=== PATIENT | female | born 1985 | race Caucasian/White ===

== ENCOUNTER 2018-11-12 09:25 | Emergency (ER) | payer MEDICAID ==
[2018-11-12] MEDS ORDERED: NS 1,000 ML IV ONE ×2 (09:44→10:47)
[2018-11-12] MEDS ORDERED: ONDANSETRON 4 MG/2 ML VIAL IVP ONE (09:55)
--- NOTE | 2018-11-12 10:24 | EDPHY ---
H & P Stated Complaint: vomiting 24hours. abdominal cramping Time Seen by Provider: 11/12/18 09:44 HPI/ROS: This (1 TAb) patient presents with vomiting. She explains that while she had some 1st trimester nausea and vomiting/the morning sickness about 3 weeks 11 of she had had any over the past 2 weeks prior to now at 13 weeks gestation. She had an healthy IUP on ultrasound week 8. She explains that she developed some upper belly discomfort yesterday described as crampy in nature prior to the onset of her vomiting and vomited several times last night. She vomited this morning in addition other few times in arise with ongoing nausea. She reports that the upper belly discomfort the proceed to the vomiting has since resolved. Now she has only mild suprapubic discomfort described as achy in nature. She has no other associated symptoms. She came in by private vehicle for evaluation. ROS: Constitutional: No fevers. No chills. HEENT: No coryza or other URI symptoms. Pulmonary: No cough or dyspnea Cardiovascular: No lightheadedness GI: Normal bowel movements. No hematemesis. : No dysuria frequency or urgency. No vaginal discharge or vaginal bleeding 10 point review of symptoms is performed and otherwise negative with exception of pertinent positives and negatives listed in HPI and ROS Source: Patient Exam Limitations: No limitations - Personal History LMP (Females 10-55): - Medical/Surgical History Hx Asthma: No Hx Chronic Respiratory Disease: No Hx Diabetes: No Hx Cardiac Disease: No Hx Renal Disease: No Hx Cirrhosis: No Hx Alcoholism: No Hx HIV/AIDS: No Hx Splenectomy or Spleen Trauma: No Other PMH: 13 weeks - Social History Smoking Status: Never smoked Alcohol Use: None - Physical Exam Exam: General Appearance: Alert, no distress. Eyes: Pupils equal and round no pallor or injection. ENT, Mouth: Mucous membranes moist. Respiratory: There are no retractions, lungs are clear to auscultation. Cardiovascular: Regular rate and rhythm. Gastrointestinal: Normoactive, soft, minimal suprapubic tenderness with no guarding or rebound. Fundus consistent with 13 weeks gestation. Back: No CVA tenderness Neurological: GCS 15. Skin: Warm and dry, no rashes. Musculoskeletal: Neck is supple nontender. Extremities are symmetrical, full range of motion. Psychiatric: Mood and affect are normal DIFFERENTIAL DIAGNOSIS: After history and physical exam differential diagnosis was considered for vomiting associated with , food intolerance, gastroenteritis, hepatitis, UTI Constitutional: Initial Vital Signs Temperature (C) 36.5 C 11/12/18 09:39 Heart Rate 60 11/12/18 09:39 Respiratory Rate 18 11/12/18 09:39 Blood Pressure 125/84 H 11/12/18 09:39 O2 Sat (%) 99 11/12/18 09:39 O2 Delivery Mode Room Air Allergies/Adverse Reactions: No Known Allergies Allergy (Unverified 11/12/18 09:41) Home Medications: Medication Instructions Recorded Doxylamine Succinate/Vit B6 2 each PO DAILY #30 tablet. 11/12/18 [Endy Encinas 10-10 mg Tablet] 11/12/18 Promethazine HCl [Phenergan 50mg 50 mg AR Q6 PRN #3 suppr 11/12/18 supp (*)] Medical Decision Making ED Course/Re-evaluation: IV normal saline bolus x2 L Zofran 4 mg with resolution of nausea and vomiting. Tolerated p. O. Fluids thereafter Patient has slight suprapubic discomfort resolved without any other intervention. Review of POC labs revealed a normal CBC, basic metabolic panel, liver function tests, urinalysis. Discussion: Patient presents with vomiting in early start her 2nd trimester. Patient feels this is related to food ingestion. She does not have diarrhea. She has a benign belly exam benign labs. Will plan to send her home on deck leisure as with Phenergan suppositories back up. She will follow up with OBGYN for any ongoing symptoms. She understands need to return emergency department should she have any worsening of her symptoms despite treatment plan - Data Points Medications Given: Discontinued Medications Sodium Chloride (Ns) 1,000 mls @ 0 mls/hr IV EDNOW ONE; Wide Open PRN Reason: Protocol Stop: 11/12/18 09:45 Last Admin: 11/12/18 10:04 Dose: 1,000 mls Sodium Chloride (Ns) 1,000 mls @ 0 mls/hr IV ONCE ONE; Wide Open PRN Reason: Protocol Stop: 11/12/18 10:48 Last Admin: 11/12/18 10:54 Dose: 1,000 mls Ondansetron HCl (Zofran) 4 mg IVP EDNOW ONE Stop: 11/12/18 09:56 Last Admin: 11/12/18 10:04 Dose: 4 mg Point of Care Test Results: CBC CBC Collection Date 11/12/18 CBC Collection Time 10:00 WBC 13.53 RBC 4.27 HGB 12.2 HCT 35.1 PLT 276 Neut # 11.73 Neut 86.6 LYMPH # 1.28 LYMPH 9.5 MCV 82.2 Chemistry 11/12/18 11/12/18 10:24 10:07 POC Sodium 137 mEq/L mEq/L (135-145) POC Potassium 3.7 mEq/L mEq/L (3.3-5.0) POC Chloride 106.0 mEq/L mEq/L (97-110) POC Total CO2 26 mEq/L mEq/L (22-31) POC BUN 5 mg/dL L mg/dL (7-23) POC Creatinine 0.6 mg/dL mg/dL (0.6-1.0) POC Glucose 105 mg/dL H mg/dL (70-100) POC Calcium 9.8 mg/dL mg/dL (8.5-10.4) POC Total Bilirubin 1.0 mg/dL mg/dL (0.1-1.4) POC GGT 6 IU/L IU/L (5-65) POC AST 27 IU/L IU/L (14-46) POC ALT 15 IU/L IU/L (9-52) POC Alk Phosphatase 61 IU/L IU/L (38-126) POC Total Protein 7.3 g/dL g/dL (6.3-8.2) POC Albumin 3.9 g/dL g/dL (3.5-5.0) POC Amylase 77 IU/L IU/L (30-110) Liver Function Tests LFT Collection Date 11/12/18 LFT Collection Time 10:00 Urine Dip Collection Date 11/12/18 Collection Time 10:45 Specific [place] (1.002-1.030) 1.015 PH (5.0-7.5) 7.5 Leukocytes (Negative) Negative Nitrites (Negative) Negative Protein (Negative) Negative Glucose (Negative) Negative Ketones (Negative) 3+ Urobilnogen (0.2-1.0 EU) 0.2 Bilirubin (Negative) Negative Blood (Negative) Negative Departure - Departure Disposition: Home, Routine, Self-Care Clinical Impression: Vomiting, Dehydration Clinical Impression: (Ruled Out): Vomiting affecting Condition: Fair Instructions: Nausea and Vomiting in (ED) Additional Instructions: Diagnosis: Vomiting in 2. Dehydration All of your labs today are normal for . Plan: Light diet until he feel improved Drink plenty fluids Dyclegis as prescribed or vitamin B6 and Doxylamine separately Donna supplement in addition for nausea Phenergan suppositories if needed for vomiting Follow up with OBGYN Return emergency department for any significant worsening despite treatment plan Referrals: NONE *PRIMARY CARE P,. [Primary Care Provider] - As per Instructions Winnie Crawley MD [Medical Doctor] - As per Instructions Prescriptions: Doxylamine Succinate/Vit B6 [Endy Encinas 10-10 mg Tablet] 2 each PO DAILY #30 tablet. Promethazine HCl [Phenergan 50mg supp (*)] 50 mg AR Q6 PRN #3 suppr PRN Reason: vomiting
[2018-11-12 11:55] VITALS: BP 123/80
== END 2018-11-12 12:09 | disposition home or self-care (01) ==
LOC: CED 09:25
DX: O21.8 Other vomiting complicating pregnancy (principal); O99.281 Endocrine, nutritional and metabolic diseases complicating pregnancy, first trimester; Z3A.13 13 weeks gestation of pregnancy
CPT/HCPCS: 80048-ER; 80076-ER; 82150-ER; 85025-QW-ER; 85379-QW-ER; 96361-ER; 96374-ER; 99284-ER; J2405